=== PATIENT | female | born 1985 | race African-American/Black ===

== ENCOUNTER 2016-08-17 11:47 | Emergency (ER) | payer MEDICAID ==
[2016-08-17 11:57] VITALS: BP 109/78; PULSE 77; RESP 16; TEMP 97.9; O2SAT 97
--- NOTE | 2016-08-17 12:31 | UCPHY ---
H & P Time Seen by Provider: 08/17/16 12:04 Patient Type: Established HPI/ROS: CHIEF COMPLAINT: Sore throat History by patient HISTORY OF PRESENT ILLNESS: 30-year-old woman presents complaining of 3 days of sore throat, hoarse voice, pain with swallowing as well as feeling that there was some swelling, pain and white over her site of her prior wisdom tooth extraction several years ago. She has been using salt water rinses and peroxide rinses. She also complains of swollen glands in her neck. She denies any cough or runny nose. She has had subjective fever at home this morning. She took 2 ibuprofen with minimal relief. She denies any nausea, vomiting or diarrhea. REVIEW OF SYSTEMS: As in HPI, and all other systems reviewed and are negative Smoking Status: Never smoked Physical Exam: General Appearance: Alert and no distress. Head: normocephalic, atraumatic, no sinus tenderness Eyes: Pupils equal and round no injection. Ears: TM clear bilat OP: mucus membranes moist, dentition within normal limits, posterior pharynx red , no tonsillar enlargement, no exudates Neck: no meningismus, positive right, nontender cervical nodes, no submandibular nodes Respiratory: Chest is nontender, lungs are clear to auscultation. Cardiac: regular rate and rhythm. Gastrointestinal: Abdomen is soft and nontender, no masses, bowel sounds normal. Musculoskeletal: Neck is supple and nontender. Extremities have full range of motion and are nontender. Skin: No rashes or lesions. Constitutional: Initial Vital Signs Temperature (C) 36.6 C 08/17/16 11:51 Heart Rate 77 08/17/16 11:51 Respiratory Rate 16 08/17/16 11:51 Blood Pressure 109/78 08/17/16 11:51 O2 Sat (%) 97 08/17/16 11:51 O2 Delivery Mode Room Air Allergies/Adverse Reactions: azithromycin Allergy (Severe, Verified 08/17/16 11:50) Itching minocycline HCl [From Dynacin] Allergy (Severe, Verified 08/17/16 11:50) Swelling/neck,face,throat Home Medications: Medication Instructions Recorded Albuterol 5 mg/ml INH [Proventil] 5 mg IH Q2-4PRN #1 btl 07/19/15 Ibuprofen [Motrin (*)] 800 mg PO Q6-8PRN #30 tab 07/19/15 Albuterol Hfa Anes Only [Proair 2 puffs IH Q4 PRN #1 mdi 03/24/16 Hfa Icu (*)] Fluticasone Hfa 220 Mcg [Flovent 2 puffs IH DAILY #1 mdi 03/24/16 220 MCG Hfa MDI (*)] MDM/Departure - MDM ED Course/Re-evaluation: Rapid strep was negative. There is no evidence of respiratory compromise or peritonsillar abscess or other significant infection. Patient was discharged home stable condition. - Depart Disposition: Home, Routine, Self-Care Clinical Impression: Acute pharyngitis, unspecified Condition: Good Instructions: Pharyngitis (ED) Additional Instructions: You were seen by Dr. Janet Paige today. Return for any worsening or new concerns. Continue ibuprofen, warm salt water gargles and Tylenol as needed. Stand Alone Forms: Work Excuse Referrals: Doctor Not,On Staff, MD [Medical Doctor] - As per Instructions - PQRS PQRS Measurement: NA
== END 2016-08-17 14:14 | disposition home or self-care (01) ==
LOC: CED 11:47
DX: J02.9 Acute pharyngitis, unspecified (principal)
CPT/HCPCS: 87880-PO; 99214-PO; G0463-PO

== ENCOUNTER 2016-08-19 09:09 | Emergency (ER) | payer MEDICAID ==
[2016-08-19] MEDS ORDERED: LIDOCAINE 2% VISCOUS 15 ML UDCUP PO ONE (09:51)
[2016-08-19] MEDS ORDERED: MAG HYDROX/AL HYDROX/SIMETH 30 ML UDCUP PO ONE (09:51)
[2016-08-19] MEDS ORDERED: HYOSCYAMINE SULFATE 0.125 MG TAB PO ONE (09:51)
--- NOTE | 2016-08-19 09:51 | EDPHY ---
H & P Stated Complaint: Mid-epigastric pain after taking Iborofen. Time Seen by Provider: 08/19/16 09:14 HPI/ROS: CHIEF COMPLAINT: Epigastric pain HISTORY OF PRESENT ILLNESS: 30-year-old female presents emergency department complaining of mid epigastric burning and 1 episode of emesis 10 minutes after taking 650 mg of Tylenol and 400 mg of ibuprofen. Patient was seen at urgent care 2 days ago for a sore throat and diagnosed with pharyngitis. Patient has been taking 400 mg of ibuprofen 3 times a day for the last few days. No blood in her emesis, no blood in her stool. Patient continues with sore throat though reports it is feeling a little better. She reports postnasal drip. No cough, no fevers. REVIEW OF SYSTEMS: A comprehensive 10 point review of systems is otherwise negative aside from elements mentioned in the history of present illness. Source: Patient Exam Limitations: No limitations - Personal History LMP (Females 10-55): 1-7 Days Ago Current Tetanus/Diphtheria Vaccine: Yes Current Tetanus Diphtheria and Acellular Pertussis (TDAP): Yes - Medical/Surgical History Hx Asthma: No Hx Chronic Respiratory Disease: No Hx Diabetes: No Hx Cardiac Disease: No Hx Renal Disease: No Hx Cirrhosis: No Hx Alcoholism: No Hx HIV/AIDS: No Hx Splenectomy or Spleen Trauma: No Other PMH: WRIST CYST,BUNYONECTOMY, PCOS, reactive airway disease, pluerisy - Social History Smoking Status: Never smoked - Physical Exam Exam: Physical Exam Gen: Alert and Oriented, NAD HEENT: PERRL, moist mucous membranes, posterior pharynx with erythema, no exudate, no tonsillar hypertrophy, uvula midline, bilateral TMs normal NECK: no meningismus, no cervical lymphadenopathy CV: regular rate and regular rhythm PULM: CTAB, no wheezes ABDOMEN: soft, mild epigastric tenderness to palpation, no peritoneal signs BS present BACK: No CVA tenderness NEURO: Neurologically grossly intact EXTREMITIES: normal appearing SKIN: no rash or break in skin on exposed skin PSYCH: answers questions appropriately. Constitutional: Initial Vital Signs Temperature (C) 36.4 C 08/19/16 09:13 Heart Rate 89 08/19/16 09:13 Respiratory Rate 18 08/19/16 09:13 Blood Pressure 100/56 L 08/19/16 09:13 O2 Sat (%) 100 08/19/16 09:13 O2 Delivery Mode Room Air Allergies/Adverse Reactions: azithromycin Allergy (Severe, Verified 08/17/16 11:50) Itching minocycline HCl [From Dynacin] Allergy (Severe, Verified 08/17/16 11:50) Swelling/neck,face,throat Home Medications: Medication Instructions Recorded Albuterol 5 mg/ml INH [Proventil] 5 mg IH Q2-4PRN #1 btl 07/19/15 Ibuprofen [Motrin (*)] 800 mg PO Q6-8PRN #30 tab 07/19/15 Albuterol Hfa Anes Only [Proair 2 puffs IH Q4 PRN #1 mdi 03/24/16 Hfa Icu (*)] Fluticasone Hfa 220 Mcg [Flovent 2 puffs IH DAILY #1 mdi 03/24/16 220 MCG Hfa MDI (*)] Ondansetron Odt [Zofran Odt] 4 mg PO Q6-8PRN PRN #8 tab 08/19/16 Ranitidine HCl 150 mg PO BID #30 tablet 08/19/16 Medical Decision Making ED Course/Re-evaluation: 30-year-old female comes in with epigastric pain and burning with nausea after taking 3 days of ibuprofen for a pharyngitis. Patient has a history of gastritis. Patient is given a GI cocktail on arrival to the emergency department and ranitidine. She continues with pain and nausea. IV established , CBC and chemistry panel obtained, patient is given 0.5 mg of Dilaudid IV, and 4 mg of Zofran IV, this brought her pain to a 0 though she continued to complain of nausea. Patient was given 0.5 mg of lorazepam. 12pm-repeat evaluation patient has no abdominal pain, no peritoneal signs. She reports her symptoms have resolved. She will be discharged home with prescription for ranitidine and Zofran. She will follow up with her PCP on Monday for re-evaluation and will return for worsening symptoms. Differential Diagnosis: Diagnosis considered but not limited to gastritis, cholecystitis, acid reflux, pancreatitis, postnasal drip - Data Points Laboratory Results: Laboratory Results 08/19/16 10:52 08/19/16 10:55 08/19/16 08/19/16 08/19/16 10:55 10:55 10:52 WBC 13.74 10^3/uL H 10^3/uL (3.80-9.50) RBC 4.32 10^6/uL 10^6/uL (4.18-5.33) Hgb 13.2 g/dL g/dL (12.6-16.3) Hct 39.3 % % (38.0-47.0) MCV 91.0 fL fL (81.5-99.8) MCH 30.6 pg pg (27.9-34.1) MCHC 33.6 g/dL g/dL (32.4-36.7) RDW 12.7 % % (11.5-15.2) Plt Count 212 10^3/uL 10^3/uL (150-400) MPV 10.1 fL fL (8.7-11.7) Neut % (Auto) 88.8 % H % (39.3-74.2) Lymph % (Auto) 5.0 % L % (15.0-45.0) Eagle % (Auto) 4.6 % % (4.5-13.0) Eos % (Auto) 0.9 % % (0.6-7.6) Baso % (Auto) 0.4 % % (0.3-1.7) Nucleat RBC Rel Count 0.0 % % (0.0-0.2) Absolute Neuts (auto) 12.20 10^3/uL H 10^3/uL (1.70-6.50) Absolute Lymphs (auto) 0.69 10^3/uL L 10^3/uL (1.00-3.00) Absolute Monos (auto) 0.63 10^3/uL 10^3/uL (0.30-0.80) Absolute Eos (auto) 0.13 10^3/uL 10^3/uL (0.03-0.40) Absolute Basos (auto) 0.05 10^3/uL 10^3/uL (0.02-0.10) Absolute Nucleated RBC 0.00 10^3/uL 10^3/uL (0-0.01) Immature Gran % 0.3 % % (0.0-1.1) Immature Gran # 0.04 10^3/uL 10^3/uL (0.00-0.10) Sodium 140 mEq/L mEq/L (134-144) Potassium 3.8 mEq/L mEq/L (3.5-5.2) Chloride 105 mEq/L mEq/L (97-110) Carbon Dioxide 25 mEq/l mEq/l (22-31) Anion Gap 10 mEq/L mEq/L (8-16) BUN 8 mg/dL mg/dL (7-23) Creatinine 0.7 mg/dL mg/dL (0.6-1.0) Estimated GFR > 60 Glucose 88 mg/dL mg/dL (70-100) Calcium 8.9 mg/dL mg/dL (8.5-10.4) Beta HCG, Qual NEGATIVE Medications Given: Discontinued Medications Al Hydroxide/Mg Hydroxide (Maalox Susp) 30 ml PO ONCE ONE Stop: 08/19/16 09:52 Last Admin: 08/19/16 10:00 Dose: 30 ml Hydromorphone HCl (Dilaudid) 0.5 mg IVP EDNOW ONE Stop: 08/19/16 10:52 Last Admin: 08/19/16 11:18 Dose: 0.5 mg Hyoscyamine Sulfate (Levsin, Hyomax-Sl) 0.25 mg PO ONCE ONE Stop: 08/19/16 09:52 Last Admin: 08/19/16 10:00 Dose: 0.25 mg Lidocaine (Lidocaine 2% Viscous) 15 ml PO ONCE ONE Stop: 08/19/16 09:52 Last Admin: 08/19/16 10:00 Dose: 15 ml Lorazepam (Ativan Injection) 0.5 mg IVP EDNOW ONE Stop: 08/19/16 11:41 Last Admin: 08/19/16 11:54 Dose: Not Given Ondansetron HCl (Zofran) 4 mg IVP EDNOW ONE Stop: 08/19/16 10:52 Last Admin: 08/19/16 11:18 Dose: 4 mg Ranitidine HCl (Zantac) 150 mg PO EDNOW ONE Stop: 08/19/16 10:03 Last Admin: 08/19/16 10:27 Dose: Not Given Ranitidine HCl (Zantac) 150 mg PO EDNOW ONE Stop: 08/19/16 10:31 Last Admin: 08/19/16 10:27 Dose: 150 mg Departure - Departure Disposition: Home, Routine, Self-Care Clinical Impression: Gastritis Qualifiers: Gastritis type: unspecified gastritis Chronicity: acute Gastritis bleeding: without bleeding Qualified Code(s): K29.00 - Acute gastritis without bleeding Condition: Good Instructions: Gastritis (ED), Diet for Stomach Ulcers and Gastritis (ED) Additional Instructions: Take 150 mg of Zantac twice daily. Eat small frequent meals. Eat bland foods, nothing spicy, greasy or acidic. Limit caffeine and alcohol as this will make it worse. Stop taking ibuprofen. Return to the emergency department for worsening symptoms, new symptoms or concerns, follow up with your primary care doctor on Monday for re-evaluation. Referrals: BILLY ASKEW [Other] - As per Instructions Prescriptions: Ondansetron Odt [Zofran Odt] 4 mg PO Q6-8PRN PRN #8 tab PRN Reason: Nausea/Vomiting, Can'T Take Po Ranitidine HCl 150 mg PO BID #30 tablet
[2016-08-19] MEDS ORDERED: RANITIDINE SYRUP 15 MG/1 ML UDSYR PO ONE (10:02)
[2016-08-19] MEDS ORDERED: RANITIDINE HCL 150 MG/10 ML UDCUP PO ONE (10:30)
[2016-08-19] MEDS ORDERED: ONDANSETRON 4 MG/2 ML VIAL IVP ONE (10:51)
[2016-08-19] MEDS ORDERED: HYDROmorphONE/DILAUDID 1 MG/ML SYR IVP ONE (10:51)
[2016-08-19 11:02] LABS: % IMMATURE GRANULYOCYTES 0.3 % (0.0-1.1); ABSOLUTE IMMATURE GRANULOCYTES 0.04 10^3/uL (0.00-0.10); ADD DIFF? NO; ADD MORPH? NO; ADD SCAN? NO; ATYPICAL LYMPHOCYTE FLAG 0 (0-99); FRAGMENT RBC FLAG 0 (0-99); HEMATOCRIT 39.3 % (38.0-47.0); HEMOGLOBIN 13.2 g/dL (12.6-16.3); LEFT SHIFT FLG 10 (0-99); LIPEMIA HEMOLYSIS FLAG 80 (0-99); MEAN CELL HEMOGLOBIN 30.6 pg (27.9-34.1); MEAN CELL HEMOGLOBIN CONCENTR. 33.6 g/dL (32.4-36.7); MEAN PLATELET VOLUME 10.1 fL (8.7-11.7); PLATELET CLUMPS FLAG 10 (0-99); PLATELET COUNT 212 10^3/uL (150-400); RED BLOOD CELL COUNT 4.32 10^6/uL (4.18-5.33); RED CELL DISTRIBUTION WIDTH 12.7 % (11.5-15.2)
[2016-08-19 11:23] LABS: ANION GAP 10 mEq/L (8-16); CALCIUM 8.9 mg/dL (8.5-10.4); CARBON DIOXIDE 25 mEq/l (22-31); CHLORIDE 105 mEq/L (97-110); CREATININE 0.7 mg/dL (0.6-1.0); GLOMERULAR FILTRATION RATE > 60; GLUCOSE 88 mg/dL (70-100); POTASSIUM 3.8 mEq/L (3.5-5.2); SODIUM 140 mEq/L (134-144)
[2016-08-19] MEDS ORDERED: LORazepam 2 MG/ML INJ IVP ONE (11:40)
[2016-08-19] MEDS ORDERED: LORazepam 2 MG/ML INJ ONE (11:42)
[2016-08-19 11:55] VITALS: PULSE 80; TEMP 98.4; O2SAT 94
[2016-08-19 12:22] VITALS: BP 130/78; RESP 14
== END 2016-08-19 12:21 | disposition home or self-care (01) ==
DX: K29.00 Acute gastritis without bleeding (principal)
CPT/HCPCS: 96374; J1170; J2060; J2405

== ENCOUNTER → 2016-11-22 | Outpatient (CLI) | payer MEDICAID | LOC: FIMAGING 16:52 | PROVIDERS: ATTEND Midwife | DX: R10.2 Pelvic and perineal pain (principal); D25.2 Subserosal leiomyoma of uterus ==

== ENCOUNTER → 2018-07-23 | Outpatient (CLI) | payer MEDICAID | LOC: FIMAGING 15:54 | PROVIDERS: ATTEND Obstetrics & Gynecology | DX: D25.1 Intramural leiomyoma of uterus (principal); D25.2 Subserosal leiomyoma of uterus ==